=== PATIENT | male | born 1955 | race Caucasian/White ===

== ENCOUNTER → 2021-01-26 | Outpatient (CLI) | payer MEDICARE, BC | LOC: M CLY 10:37 | PROVIDERS: ATTEND Student in an Organized Health Care Education/Training Program | DX: E11.69 Type 2 diabetes mellitus with other specified complication (principal); E04.1 Nontoxic single thyroid nodule ==

== ENCOUNTER → 2022-12-06 | Outpatient (REF) | payer BC, MEDICARE ==
[2022-12-07 10:37] LABS: BASO % 0.4 % (0.0-1.0); EOS # 0.1 10^3/uL (0.0-0.5); EOS % 1.3 % (0.0-3.0); HEMATOCRIT 36.5 % (42.0-52.0); HEMOGLOBIN 11.1 g/dl (13.5-17.5); LYMPH # 2.2 10^3/uL (1.5-5.0); LYMPH % 24.4 % (24.0-44.0); MEAN CORPUSCULAR HEMOGLOBIN 24.3 pg (27.0-33.0); MEAN CORPUSCULAR HGB CONC 30.4 g/dl (32.0-36.5); MONO # 0.6 10^3/uL (0.0-0.8); MONO % 6.7 % (2.0-8.0); NEUTROPHILS % 66.9 % (36.0-66.0); PLATELET COUNT, AUTOMATED 183 10^3/uL (150-450); RED BLOOD COUNT 4.56 10^6/uL (4.30-6.10); WHITE BLOOD COUNT 9.1 10^3/uL (4.0-10.0)
[2022-12-07 10:51] LABS: FREE T4 0.99 NG/DL (0.89-1.76)
[2022-12-07 10:52] LABS: THYROID STIMULATING HORMONE 1.634 uIU/ML (0.55-4.78)
[2022-12-07 10:53] LABS: ALBUMIN 3.4 G/DL (3.2-5.2); ALKALINE PHOSPHATASE 82 U/L (46-116); ALT/SGPT 36 U/L (7.0-40); AST/SGOT 31 U/L (<34); BILIRUBIN,TOTAL 0.3 MG/DL (0.3-1.2); BLOOD UREA NITROGEN 22 MG/DL (9-23); CALCIUM LEVEL 8.7 MG/DL (8.3-10.6); CARBON DIOXIDE LEVEL 26 MMOL/L (20-31); CHLORIDE LEVEL 107 MMOL/L (98-107); CHOLESTEROL LEVEL 96 MG/DL (<200); CHOLESTEROL RISK RATIO 2.87 (<5); CREATININE FOR GFR 0.78 MG/DL (0.70-1.30); GLOMERULAR FILTRATION RATE > 60.0 (>49); GLUCOSE, FASTING 124 MG/DL (74-106); HDL CHOLESTEROL 33.4 MG/DL (>40); LDL CHOLESTEROL 33.8 MG/DL (<100); NON-HDL-C 63 MG/DL; POTASSIUM SERUM 4.8 MMOL/L (3.5-5.1); SODIUM LEVEL 141 MMOL/L (136-145); TOTAL PROTEIN 6.3 G/DL (5.7-8.2); TRIGLYCERIDES LEVEL 144 MG/DL (<150)
[2022-12-07 11:10] LABS: HEMOGLOBIN A1c 5.9 % (4.0-6.0)
== END ==
LOC: EDSEX → M SFHCLERA 07:50
PROVIDERS: ATTEND Student in an Organized Health Care Education/Training Program
DX: E04.1 Nontoxic single thyroid nodule (principal); E11.69 Type 2 diabetes mellitus with other specified complication

== ENCOUNTER → 2022-12-09 | Outpatient (CLI) | payer BC, MEDICARE | LOC: M WHC 14:15 → EDSEX 14:15 | PROVIDERS: ATTEND Student in an Organized Health Care Education/Training Program | DX: Z12.31 Encounter for screening mammogram for malignant neoplasm of breast (principal) ==

== ENCOUNTER → 2024-09-30 | Outpatient (REF) | payer BC ==
[~2024-09-30] MED LIST: ALBU8.5H; ALPR0.25; AMIT50TA; ASPI81TA26 PO; ATEN25TA; ATEN25TA PO; GERITAB9 PO; METF500T13; NOXI1TAB PO; PANT40TA29; ROSU20TA86
[2024-09-30 18:30] LABS: BLOOD UREA NITROGEN 24 MG/DL (9-23); CREATININE FOR GFR 0.84 MG/DL (0.55-1.30); GLOMERULAR FILTRATION RATE > 60.0 (>39)
== END ==
LOC: M LABDRAWC 17:13
PROVIDERS: ATTEND Physician Assistant Medical
DX: D50.9 Iron deficiency anemia, unspecified (principal)

== ENCOUNTER → 2024-10-08 | Outpatient (CLI) | payer BC ==
[~2024-10-08] MED LIST changes: +ISOVUE-370 76% 100ML VIAL As Ordered ONE
== END ==
LOC: M RAD 08:17
PROVIDERS: ATTEND Physician Assistant Medical
DX: D50.9 Iron deficiency anemia, unspecified (principal)

== ENCOUNTER → 2024-12-12 | Outpatient (REF) | payer BC ==
[~2024-12-12] MED LIST changes: -ISOVUE-370 76% 100ML VIAL As Ordered ONE
[2024-12-12 18:59] LABS: BASO # 0.1 10^3/uL (0.0-0.2); BASO % 0.7 % (0.0-1.0); EOS # 0.1 10^3/uL (0.0-0.5); LYMPH # 2.2 10^3/uL (1.5-5.0); LYMPH % 31.7 % (24.0-44.0); MEAN CORPUSCULAR HEMOGLOBIN 28.7 pg (27.0-33.0); MEAN CORPUSCULAR HGB CONC 32.6 g/dl (32.0-36.5); MEAN CORPUSCULAR VOLUME 88.3 fl (80.0-96.0); MONO # 0.5 10^3/uL (0.0-0.8); MONO % 6.9 % (2.0-8.0); NEUTROPHILS # 4.1 10^3/uL (1.5-8.5); NEUTROPHILS % 59.4 % (36.0-66.0); RED BLOOD COUNT 4.87 10^6/uL (4.00-5.40)
[2024-12-12 19:06] LABS: ALBUMIN 3.4 G/DL (3.2-5.2); ALKALINE PHOSPHATASE 73 U/L (35-104); ALT/SGPT 30 U/L (7.0-40); AST/SGOT 25 U/L (<34); BILIRUBIN,TOTAL 0.2 MG/DL (0.3-1.2); BLOOD UREA NITROGEN 16 MG/DL (9-23); CALCIUM LEVEL 8.6 MG/DL (8.3-10.6); CARBON DIOXIDE LEVEL 26 MMOL/L (20-31); CHLORIDE LEVEL 109 MMOL/L (98-107); CREATININE FOR GFR 0.79 MG/DL (0.55-1.30); GLOMERULAR FILTRATION RATE > 60.0 (>39); GLUCOSE, FASTING 120 MG/DL (74-106); POTASSIUM SERUM 4.7 MMOL/L (3.5-5.1); SODIUM LEVEL 146 MMOL/L (136-145); TOTAL PROTEIN 6.6 G/DL (5.7-8.2)
== END ==
LOC: M LABDRAWC 16:44
PROVIDERS: ATTEND Internal Medicine Medical Oncology
DX: D50.9 Iron deficiency anemia, unspecified (principal)

== ENCOUNTER → 2025-06-09 | Outpatient (REF) | payer BC ==
[~2025-06-09] MED LIST changes: +AMIT50TA PO; +METF500T13 PO; +PANT40TA29 PO; +PROA1AER2 INH; +ROSU20TA86 PO; +VITA100093 PO; +XANA0.25 PO
[2025-06-09 19:11] LABS: ALT/SGPT 30.0 U/L (7.0-40); AST/SGOT 27.0 U/L (<34); CALCIUM LEVEL 9.0 MG/DL (8.3-10.6); CARBON DIOXIDE LEVEL 26.0 MMOL/L (20-31); CHLORIDE LEVEL 107.0 MMOL/L (98-107); CREATININE FOR GFR 0.9 MG/DL (0.55-1.30); GLOMERULAR FILTRATION RATE 68.4 (>39); POTASSIUM SERUM 5.2 MMOL/L (3.5-5.1); SODIUM LEVEL 143.0 MMOL/L (136-145)
[2025-06-09 19:14] LABS: PLATELET COUNT, AUTOMATED 146 10^3/uL (150-450)
== END ==
LOC: M LABDRAWC 17:49
PROVIDERS: ATTEND Physician Assistant Medical
DX: R10.11 Right upper quadrant pain (principal); D50.9 Iron deficiency anemia, unspecified

== ENCOUNTER → 2025-09-29 | Outpatient (CLI) | payer MEDICARE, BC | LOC: M RAD 13:23 | PROVIDERS: ATTEND Internal Medicine Medical Oncology | DX: Z12.2 Encounter for screening for malignant neoplasm of respiratory organs (principal); F17.210 Nicotine dependence, cigarettes, uncomplicated; I25.10 Atherosclerotic heart disease of native coronary artery without angina pectoris; E04.1 Nontoxic single thyroid nodule ==

== ENCOUNTER → 2025-10-24 | Outpatient (CLI) | payer BC | LOC: M RAD 15:06 | PROVIDERS: ATTEND Internal Medicine Medical Oncology | DX: E04.1 Nontoxic single thyroid nodule (principal) ==

== ENCOUNTER 2025-10-28 13:24 | Outpatient (CLI) | payer BC, MEDICARE ==
[~2025-10-28] VITALS: Ht 160 cm; Wt 87.7 kg
[~2025-10-28 13:24] MED LIST changes: +ALBUTEROL SULFATE 2.5 MG/0.5 ML INH CONCENTRATE NEB SOLN INH PRN; +EPINEPHrine INJ 1 MG/ML 1ML AMP IM PRN; +diphenhydrAMINE 50 MG/ML VIAL IV PRN
[2025-10-28 13:30] VITALS: BP 107/63; O2SAT 95
[2025-10-28] MEDS: diphenhydrAMINE 25MG PO PRIOR TO INFUSION PO ONE (14:03)
[2025-10-28] MEDS: ACETAMINOPHEN 650MG PO PRIOR TO INFUSION PO ONE (14:04)
[2025-10-28] MEDS: IRON SUCROSE 300 MG in NS 250 ML IV ONE (14:26)
[2025-10-28 16:07] VITALS: BP 110/81; O2SAT 96
== END 2025-10-28 16:08 | disposition home or self-care (01) ==
LOC: M INFU 13:24
PROVIDERS: ATTEND Internal Medicine Medical Oncology
DX: D50.9 Iron deficiency anemia, unspecified (principal); Z88.0 Allergy status to penicillin
CPT/HCPCS: 96365; 96366; J1100; J1756

== ENCOUNTER 2025-11-04 13:04 | Outpatient (CLI) | payer BC ==
[~2025-11-04] VITALS: Ht 160 cm; Wt 88.1 kg
[2025-11-04 13:20] VITALS: BP 103/61; O2SAT 95
[2025-11-04] MEDS ORDERED: dexameTHASONE 20 MG IV PRIOR TO INFUSION IV ONE (14:00)
[2025-11-04] MEDS: ACETAMINOPHEN 650MG PO PRIOR TO INFUSION PO ONE (14:17)
[2025-11-04] MEDS: IRON SUCROSE 300 MG in NS 250 ML IV ONE (14:17)
[2025-11-04] MEDS: diphenhydrAMINE 25MG PO PRIOR TO INFUSION PO ONE (14:17)
[2025-11-04 16:01] VITALS: BP 114/76; O2SAT 98
== END 2025-11-04 16:05 | disposition home or self-care (01) ==
LOC: M INFU 13:04
PROVIDERS: ATTEND Internal Medicine Medical Oncology
DX: D50.9 Iron deficiency anemia, unspecified (principal); Z98.84 Bariatric surgery status; Z88.0 Allergy status to penicillin
CPT/HCPCS: 96365; 96366; J1756

== ENCOUNTER 2025-11-11 14:00 | Outpatient (CLI) | payer BC ==
[~2025-11-11] VITALS: Ht 160 cm; Wt 87.7 kg
[2025-11-11 14:00] VITALS: BP 117/71; O2SAT 96
[~2025-11-11 14:00] MED LIST changes: +dexameTHASONE 20 MG IV PRIOR TO INFUSION IV ONE
[2025-11-11] MEDS: IRON SUCROSE 300 MG in NS 250 ML IV ONE (14:48)
[2025-11-11] MEDS: ACETAMINOPHEN 650MG PO PRIOR TO INFUSION PO ONE (14:49)
[2025-11-11] MEDS: diphenhydrAMINE 25MG PO PRIOR TO INFUSION PO ONE (14:49)
[2025-11-11 16:24] VITALS: BP 124/75; O2SAT 96
== END 2025-11-11 16:30 ==
LOC: M INFU 14:00
PROVIDERS: ATTEND Internal Medicine Medical Oncology
DX: D50.8 Other iron deficiency anemias (principal); Z88.0 Allergy status to penicillin
CPT/HCPCS: 96365; 96366; J1756